=== PATIENT | female | born 1995 | race Two or more races ===

== ENCOUNTER 2019-09-20 00:47 | Emergency (ER) | payer MEDICAID ==
[~2019-09-20] VITALS: Ht 180.3 cm; Wt 81.0 kg
[2019-09-20 01:33] LABS: CLARITY URINE CLOUDY (CLEAR); COLOR URINE YELLOW (YELLOW); KETONES URINE NEGATIVE (NEGATIVE); LEUKOCYTE ESTERASE URINE TRACE (NEGATIVE); NITRITE URINE NEGATIVE (NEGATIVE); OCCULT BLOOD URINE NEGATIVE (NEGATIVE); PROTEIN URINE NEGATIVE (NEGATIVE); SPECIFIC GRAVITY URINE 1.017 (1.005-1.030); UROBILINOGEN URINE 0.2 E.U./dL (0.2-1.0)
[2019-09-20 02:01] VITALS: BP 120/70
== END 2019-09-20 02:03 | disposition home or self-care (01) ==
LOC: ER 00:47
DX: N76.0 Acute vaginitis (principal)
CPT/HCPCS: 81003; 87210; 99283

== ENCOUNTER 2020-05-28 20:29 | Emergency (ER) | payer MEDICAID, OTHER ==
[~2020-05-28] VITALS: Ht 177.8 cm; Wt 71.0 kg
[2020-05-28 21:03] LABS: CLARITY URINE TURBID (CLEAR); COLOR URINE YELLOW (YELLOW); KETONES URINE TRACE (NEGATIVE); LEUKOCYTE ESTERASE URINE 3+ (NEGATIVE); NITRITE URINE NEGATIVE (NEGATIVE); OCCULT BLOOD URINE TRACE (NEGATIVE); PROTEIN URINE TRACE (NEGATIVE); SPECIFIC GRAVITY URINE 1.037 (1.005-1.030); UROBILINOGEN URINE 0.2 E.U./dL (0.2-1.0)
[2020-05-28 21:04] LABS: UCG SCREEN NEGATIVE
[2020-05-28 22:15] VITALS: BP 121/71
[2020-06-01 05:12] LABS: NEISSERIA GONORRHOEAE NAA Negative (Negative)
== END 2020-05-28 22:10 | disposition home or self-care (01) ==
LOC: ER 20:29
DX: N39.0 Urinary tract infection, site not specified (principal)
CPT/HCPCS: 81003; 81025; 87210; 87491; 87591; 99283

== ENCOUNTER 2022-05-14 08:56 | Emergency (ER) | payer MEDICAID ==
[~2022-05-14] VITALS: Ht 180.3 cm; Wt 80.0 kg
[2022-05-14 08:57] VITALS: BP 110/54
[2022-05-14] MEDS ORDERED: TOPUD PO (10:55)
== END 2022-05-14 11:18 | disposition home or self-care (01) ==
LOC: ER 08:56
DX: M25.561 Pain in right knee (principal)
CPT/HCPCS: 29505; 73560; 93005; 99283

== ENCOUNTER 2024-02-03 09:54 | Emergency (ER) | payer BC, MEDICAID ==
[~2024-02-03 09:54] MED LIST: TOPUD PO
[2024-02-03 10:05] VITALS: O2SAT 98
[2024-02-03 12:20] VITALS: BP 126/60; PULSE 67; RESP 18; TEMP 36.78072
== END 2024-02-03 12:53 | disposition home or self-care (01) ==
LOC: ER 09:54
DX: A15.9 Respiratory tuberculosis unspecified (principal)
CPT/HCPCS: 71045; 99283

== ENCOUNTER 2025-04-23 19:20 | Emergency (ER) | payer OTHER, BC ==
[~2025-04-23] VITALS: Ht 180.3 cm; Wt 80.0 kg
[2025-04-23 19:31] VITALS: BP 125/70; PULSE 78; RESP 18; TEMP 98.6; O2SAT 100
[2025-04-23] MEDS: ACETAMINOPHEN 500MG TABLET PO ONE (20:05)
[2025-04-23] MEDS: LIDOCAINE 5% PATCH TOP SCH (20:05)
[2025-04-23] MEDS: TETANUS, DIPHTHERIA, PERTUSSIS VAC/PF 0.5ML (>10YR OLD) IM ONE (20:06)
== END 2025-04-23 20:21 | disposition home or self-care (01) ==
LOC: ER 19:20
DX: S16.1XXA Strain of muscle, fascia and tendon at neck level, initial encounter (principal); V43.52XA Car driver injured in collision with other type car in traffic accident, initial encounter; Y92.410 Unspecified street and highway as the place of occurrence of the external cause; Y92.89 Other specified places as the place of occurrence of the external cause; Y99.8 Other external cause status
CPT/HCPCS: 90715; 90471; 99283; Z7610 ×2; A4606